=== PATIENT | male | born 1955 | race Caucasian/White ===

== ENCOUNTER 2021-09-12 09:56 | Emergency (ER) | payer SELFPAY ==
[~2021-09-12] VITALS: Ht 177.8 cm; Wt 68.6 kg
[~2021-09-12 09:56] MED LIST: NO HOME MEDS
[2021-09-12 10:35] VITALS: BP 131/88
[2021-09-12 12:22] LABS: HEMATOCRIT 44.4 % (39.0-50.0); HEMOGLOBIN 14.5 g/dl (14.0-18.0); IMMATURE GRANULOCYTES 2.4 % (0.0-5.0); MEAN CELL VOLUME 88.1 fL CALC (80.0-100.0); MEAN CORPUSCULAR HGB 28.8 pG CALC (26.0-32.0); MEAN CORPUSCULAR HGB CONC 32.7 g/dL CAL (32.0-36.0); NEUT# 15.19 thou/uL (1.82-7.42); RED BLOOD COUNT 5.04 mill/uL (4.70-6.10); RED CELL DISTRI WIDTH 15.6 % (11.5-15.5)
[2021-09-12 12:25] LABS: URINE BILIRUBIN - DIPSTICK NEGATIVE (NEGATIVE); URINE BLOOD DIPSTICK NEGATIVE (NEGATIVE); URINE COLOR YELLOW; URINE GLUCOSE - DIPSTICK NEGATIVE (NEGATIVE); URINE KETONE NEGATIVE (NEGATIVE); URINE LEUK ESTERASE NEGATIVE (NEGATIVE); URINE PH 5.5 (4.5-8.0); URINE PROTEIN - DIPSTICK NEGATIVE (NEG-TRACE); URINE SPECIFIC GRAVITY 1.025; URINE UROBILINOGEN - DIPSTICK 0.2 E.U./dL (0.2)
[2021-09-12 12:30] LABS: URINE NITRITE - DIPSTICK NEGATIVE (Negative)
[2021-09-12 12:48] LABS: ALKALINE PHOSPHATASE 132 u/l (38-126); BILIRUBIN, TOTAL 0.4 mg/dL (0.0-1.4); BUN 22 mg/dL (8-23); BUN/CREATININE RATIO 26 (12-20 (CALC)); CARBON DIOXIDE 31 mmol/l (22-30); CHLORIDE 98 mmol/l (95-108); CREATININE 0.9 mg/dL (0.7-1.3); GFR > 60 ML/MIN (>=60 (CALC)); GFR FOR AFR.AMER. > 60 ML/MIN (>=60 (CALC)); LIPASE 55 u/l (23-300); SGOT/AST 35 u/l (19-48); SODIUM 135 mmol/l (137-146); TOTAL PROTEIN 6.9 g/dL (6.3-8.2)
[2021-09-12 12:54] LABS: ALBUMIN 3.4 g/dL (3.2-5.0); ANION GAP 10 (6-22 (CALC)); POTASSIUM 4.2 mmol/l (3.5-5.1)
[2021-09-12] MEDS ORDERED: HYDROCO/APAP1 TA9 PO (16:04)
== END 2021-09-12 17:01 | disposition home or self-care (01) | DRG 204 ==
LOC: ED 09:56
PROVIDERS: Family Medicine
DX: R91.8 Other nonspecific abnormal finding of lung field (principal); R19.00 Intra-abdominal and pelvic swelling, mass and lump, unspecified site
CPT/HCPCS: Q9967